=== PATIENT | male | born 1995 | race Caucasian/White ===

== ENCOUNTER 2016-07-14 21:21 | Emergency (ER) | payer BC ==
[~2016-07-14] VITALS: Ht 180.3 cm; Wt 70.0 kg
[2016-07-14 21:23] VITALS: BP 125/67; PULSE 108; RESP 18; TEMP 99.2; O2SAT 100
[2016-07-15] MEDS ORDERED: SODIUM CHLOR 0.9% 1000 ML INJ 1,000 ML IV SCH (00:14)
[2016-07-15] MEDS ORDERED: SODIUM CHLORIDE 0.9% FLUSH 5 ML FLUSH IVF PRN (00:15)
[2016-07-15] MEDS ORDERED: traMADol HCL 50 MG TAB PO ONE (00:15)
[2016-07-15] MEDS ORDERED: CONC54TA4 PO (00:20)
[2016-07-15] MEDS ORDERED: AMBI5TAB PO (00:20)
[2016-07-15 00:35] VITALS: RESP 16; O2SAT 99
[2016-07-15 00:44] LABS: AUTOMATED NEUTROPHIL # 9.3 TH/MM3 (1.8-7.7); BASOPHIL % 0.4 % (0.0-2.0); EOSINOPHIL % 0.1 % (0.0-4.0); HEMATOCRIT 45.8 % (39.0-51.0); HEMO FLAGS DIFF FINAL; LYMPHOCYTE # 1.6 TH/MM3 (1.0-4.8); MEAN CELL VOLUME 93.3 FL (80.0-100.0); MEAN CORPUSCULAR HEMOGLOBIN 31.6 PG (27.0-34.0); MEAN CORPUSCULAR HGB CONC 33.9 % (32.0-36.0); MONO % 3.8 % (0.0-8.0); NEUT % 81.7 % (16.0-70.0); PLATELET COUNT 214 TH/MM3 (150-450); RED BLOOD COUNT 4.91 MIL/MM3 (4.50-5.90); RED CELL DISTRIBUTION WIDTH 12.9 % (11.6-17.2); WHITE BLOOD COUNT 11.4 TH/MM3 (4.0-11.0)
[2016-07-15 01:06] LABS: BLOOD, URINE NEG (NEG); COMMENT (UR) CULT NOT INDICATED; CULTURE IF INDICATED CULT NOT INDICATED; GLUCOSE,URINE TRACE mg/dL (NEG); KETONE, URINE TRACE mg/dL (NEG); MUCUS URINE FEW /lpf (OCC); NITRITE,URINE NEG (NEG); PH, URINE 6.5 (5.0-8.5); URINE COLOR YELLOW (YELLW/STRAW)
[2016-07-15 01:48] LABS: ALT (GPT) 26 U/L (9-52); ANION GAP 9 MEQ/L (5-15); AST (GOT) 18 U/L (15-39); BICARBONATE 26.4 MEQ/L (21.0-32.0); BLOOD UREA NITROGEN 16 MG/DL (7-18); CHLORIDE 106 MEQ/L (98-107); GLOMERULAR FILTRATION RATE 72 ML/MIN (>89); POTASSIUM 3.6 MEQ/L (3.5-5.1); SODIUM (NA) 141 MEQ/L (136-145)
[2016-07-15 01:58] LABS: ALKALINE PHOSPHATASE 61 U/L (45-117); TOTAL BILIRUBIN ADULT 0.7 MG/DL (0.2-1.0)
--- NOTE | 2016-07-15 02:01 | RADRPT ---
EXAM DATE/TIME: 07/15/2016 01:55 [place] COMPARISON: No previous studies available for comparison. INDICATIONS : Patient states pain to kidney area and frequent urination x 3 days. MEDICAL HISTORY : None. SURGICAL HISTORY : None. ENCOUNTER: Initial ACUITY: 3 days PAIN SCORE: 7/10 LOCATION: Bilateral chest FINDINGS: PA and lateral views of the chest demonstrate the lungs to be symmetrically aerated without evidence of mass, infiltrate or effusion. The cardiomediastinal contours are unremarkable. Osseous structure s are intact. CONCLUSION: No evidence of acute cardiopulmonary disease. George Dye MD on July 15, 2016 at 1:59 Board Certified Radiologist. This report was verified electronically.
[2016-07-15] MEDS ORDERED: CYCL1TAB29 PO (02:25)
--- NOTE | 2016-07-15 02:25 | PD ---
HPI Chief Complaint: Complaint Time Seen by Provider: 00:13 Travel History International Travel<30 days: No Contact w/Intl Traveler<30days: No Traveled to known affect area: No History of Present Illness HPI Patient is a 20 year old male presents with two complaints. Patient states he has been having heart palpitations on and off for a few days accompanied by left shoulder pain and left chest pain. patient denies smoking, illicit drug use. Family history unknown as he was adopted. Patient denies worsening on exertion. Patient also has complaints of bilateral lower back pain. Denies dysuria. States worsens with movement. No Nausea/vomiting diarrhea. PFSH Past Medical History ADHD: Yes Tetanus Vaccination: Unknown Influenza Vaccination: Yes Past Surgical History Surgical History: No Previous Surgery Social History Alcohol Use: Yes (RARE) Tobacco Use: No Substance Use: No Allergies-Medications (Allergen,Severity, Reaction): Coded Allergies: Motrin (Verified Allergy, Unknown, 07/14/16) Reported Meds & Prescriptions Reported Meds & Active Scripts Active Flexeril (Cyclobenzaprine HCl) 10 Mg Tab 10 Mg PO TID Reported Ambien (Zolpidem Tartrate) 5 Mg Tab 5 Mg PO HS PRN Concerta (Methylphenidate HCl) 54 Mg Stephon 54 Mg PO DAILY Review of Systems Except as stated in HPI: all other systems reviewed are Neg Physical Exam Narrative GENERAL: WD/WN in nad. SKIN: Warm and dry. HEAD: Atraumatic. Normocephalic. EYES: Pupils equal and round. No scleral icterus. No injection or drainage. ENT: No nasal bleeding or discharge. Mucous membranes pink and moist. NECK: Trachea midline. No JVD. CARDIOVASCULAR: Regular rate and rhythm. RESPIRATORY: No accessory muscle use. Clear to auscultation. Breath sounds equal bilaterally. GASTROINTESTINAL: Abdomen soft, non-tender, nondistended. Hepatic and splenic margins not palpable. No CVA tenderness. MUSCULOSKELETAL: Extremities without clubbing, cyanosis, or edema. No obvious deformities. NEUROLOGICAL: Awake and alert. No obvious cranial nerve deficits. Motor grossly within normal limits. Five out of 5 muscle strength in the arms and legs. Normal speech. PSYCHIATRIC: Appropriate mood and affect; insight and judgment normal. Data Data Last Documented VS Vital Signs Date Time Temp Pulse Resp B/P Pulse Ox O2 Delivery O2 Flow Rate FiO2 07/15/16 02:44 82 18 115/66 100 Room Air 2/11/17 21:23 99.2 Orders Complete Blood Count With Diff (07/15/16 00:14) Comprehensive Metabolic Panel (07/15/16 00:14) Lipase (07/15/16 00:14) Urinalysis - C+S If Indicated (07/15/16 00:14) Iv Access Insert/Monitor (07/15/16 00:14) Ecg Monitoring (07/15/16 00:14) Oximetry (07/15/16 00:14) Sodium Chlor 0.9% 1000 Ml Inj (Ns 1000 M (07/15/16 00:14) Sodium Chloride 0.9% Flush (Ns Flush) (07/15/16 00:15) Electrocardiogram (07/15/16 00:14) Troponin I (07/15/16 00:14) Tramadol (Ultram) (07/15/16 00:15) Thyroid Stimulating Hormone (07/15/16 00:20) Chest, Pa & Lat (07/15/16 ) Labs Laboratory Tests Test 07/15/16 00:35 White Blood Count 11.4 TH/MM3 Red Blood Count 4.91 MIL/MM3 Hemoglobin 15.5 GM/DL Hematocrit 45.8 % Mean Corpuscular Volume 93.3 FL Mean Corpuscular Hemoglobin 31.6 PG Mean Corpuscular Hemoglobin 33.9 % Concent Red Cell Distribution Width 12.9 % Platelet Count 214 TH/MM3 Mean Platelet Volume 7.9 FL Neutrophils (%) (Auto) 81.7 % Lymphocytes (%) (Auto) 14.0 % Monocytes (%) (Auto) 3.8 % Eosinophils (%) (Auto) 0.1 % Basophils (%) (Auto) 0.4 % Neutrophils # (Auto) 9.3 TH/MM3 Lymphocytes # (Auto) 1.6 TH/MM3 Monocytes # (Auto) 0.4 TH/MM3 Eosinophils # (Auto) 0.0 TH/MM3 Basophils # (Auto) 0.0 TH/MM3 CBC Comment DIFF FINAL Differential Comment Urine Color YELLOW Urine Turbidity CLEAR Urine pH 6.5 Urine Specific [place] 1.035 Urine Protein TRACE mg/dL Urine Glucose (UA) TRACE mg/dL Urine Ketones TRACE mg/dL Urine Occult Blood NEG Urine Nitrite NEG Urine Bilirubin NEG Urine Urobilinogen 2.0 MG/DL Urine Leukocyte Esterase NEG Urine WBC LESS THAN 1 /hpf Urine Mucus FEW /lpf Microscopic Urinalysis Comment CULT NOT INDICATED Sodium Level 141 MEQ/L Potassium Level 3.6 MEQ/L Chloride Level 106 MEQ/L Carbon Dioxide Level 26.4 MEQ/L Anion Gap 9 MEQ/L Blood Urea Nitrogen 16 MG/DL Creatinine 1.27 MG/DL Estimat Glomerular Filtration 72 ML/MIN Rate Random Glucose 99 MG/DL Calcium Level 8.8 MG/DL Total Bilirubin 0.7 MG/DL Aspartate Amino Transf 18 U/L (AST/SGOT) Alanine Aminotransferase 26 U/L (ALT/SGPT) Alkaline Phosphatase 61 U/L Troponin I LESS THAN 0.02 NG/ML Total Protein 7.3 GM/DL Albumin 4.9 GM/DL Lipase 74 U/L Thyroid Stimulating Hormone 0.421 uIU/ML 3rd Gen [facility] Medical Decision Making Medical Screen Exam Complete: Yes Emergency Medical Condition: Yes Interpretation(s) EKG shows NSR with normal axis and normal R-Wave progression. No STT changes. Normal EKG. Differential Diagnosis Chest pain, ACS unlikely, PNA unlikely, palpitations, kidney stone, muscular skeletal pain. Narrative Course Patient roomed in ED. Given ultram for his pain. Appears quite comfortable. Low risk for ACS. UA negative. Troponin negative. Patient is stable for discharge. Discuss need for follow up with his PCP within the next week and return to ED criteria. No indication for further workup in the ED at this time. Stable to pursue further workup outpatient. Diagnosis Primary Impression: Chest pain Qualified Code: R07.9 - Chest pain, unspecified type Additional Impression: Flank pain Med/Other Pt SpecificInfo: Prescription(s) given Scripts Cyclobenzaprine (Flexeril)10 Mg Tab10 Mg PO TID #20 TAB Ref 0 Prov:Jerad Segundo MD 07/15/16 Disposition: 01 DISCHARGE HOME Condition: Stable Jerad Segundo MD Jul 15, 2016 02:25
[2016-07-15 02:44] VITALS: BP 115/66; PULSE 82; RESP 18; O2SAT 100
--- NOTE | 2016-07-15 12:55 | EKG ---
Date Performed: 07/15/2016 Time Performed: 00:48:31 PTAGE: 20 years EKG: Sinus rhythm BORDERLINE RIGHT AXIS DEVIATION BORDERLINE ECG NO PREVIOUS TRACING DOCTOR: Artemio García Interpretating Date/Time 07/15/2016 12:50:10
== END 2016-07-15 02:45 | disposition home or self-care (01) ==
LOC: NEPE 21:21
DX: R07.9 Chest pain, unspecified (principal); R10.9 Unspecified abdominal pain; R94.31 Abnormal electrocardiogram [ECG] [EKG]
CPT/HCPCS: 71020; 80053; 81001; 83690; 84443; 84484; 85025; 93005; 96360; 99285; J7030